=== PATIENT | male | born 1950 | race Caucasian/White ===

== ENCOUNTER → 2020-06-13 13:36 | Outpatient (BNVA) | payer MEDICARE, SELFPAY | PROVIDERS: PCP Internal Medicine; Visit Provider Urology | DX: Z13.89 Encounter for screening for other disorder (principal) | CPT/HCPCS: Q3014 ==

== ENCOUNTER → 2021-06-20 13:09 | Outpatient (BNVA) | payer MEDICARE, SELFPAY | PROVIDERS: PCP Internal Medicine; Visit Provider Urology | DX: N52.31 Erectile dysfunction following radical prostatectomy (principal); C61 Malignant neoplasm of prostate | CPT/HCPCS: Q3014 ==

== ENCOUNTER 2023-07-31 08:41 | Outpatient (AMB) | payer MEDICARE, SELFPAY ==
--- NOTE | 2023-07-31 08:49 | MHC.OFFVIS ---
Intake Visit Reasons: hx of prostate cancer Intake Note: Patient is Present for Follow Up Urology Medication: None Antibiotic Allergies:None Blood Thinners: Aspirin Allergies No Known Allergies Allergy (Verified 07/31/23 08:54) HPI Comments Details: Mr Howard is a very pleasant male - he is deaf. They are a patient of Dr Bhat. He seen for the following urologic conditions - prostate cancer - erectile dysfunction PSA remains low Good control of urination Continue follow yearly given salvage radiation Encouraged activity as now in the 70s. Include resistance training 2 times a week. Prostate cancer: Favorable intermediate radical prostatectomy 2000, external beam radiation 2012 Doing well PSA controlled Good urination. Prostate cancer was diagnosed [address] Montemayor. Diagnosis was reached by needle biopsy, for elevated PSA. The Samra grade is 3+4 = 7. TNM Classification of Malignant Tumours (TNM) T2a. The D'Aristides (NCCN) risk category is Intermediate Risk (PSA 10-20, Gl 7, T2). Initial therapy included Primary treatment, Prostatectomy (RRP/Robotic) , Additional treatment, Observation - 2009 , Additional treatment, , External Beam Radiation , Additional treatment, Observation. Recent labs included a PSA (prostate-specific antigen) Nov 2014, < 0.1, June 2015, < 0.05 November 2016 ,< 0.1 05/24 < 0.1, 06/23 < 0.1, 06/24 < 0.1, 06/25 < 0.1, 06/26 <0.1, 01/27 <0.1 Associated conditions erectile dysfunction Yes Discussed options Therapeutic plan: Continue with surveillance [facility] Medical History Deaf Hyperlipidemia CAD (coronary atherosclerotic disease) HTN (hypertension) Review of Systems Const Denies chills and Denies fever(s) Card Reports no additional complaints and Denies syncope Resp Denies cough GI Denies abdominal pain and Denies heartburn Reports as per HPI and Denies change in libido Neuro Denies syncope Psych Denies change in libido Endo Denies change in libido Physical Exam Const General: cooperative, healthy appearing, comfortable and no acute distress Orientation/consciousness: patient oriented x3 HEENT Face and sinus: Yes normal facial exam Mouth: moist mucous membranes Neck Neck: Yes normal visual inspection, Yes full ROM and Yes trachea midline Chest Chest palpation & inspection: normal inspection of the chest Resp Effort & Inspection: normal respiratory effort, able to speak in complete sentences and no respiratory distress GI Inspection: Yes normal to inspection Back/Spine/Pelvis Cervical Spine: normal cervical lordosis Thoracic/Lumbar Spine: thoracic and lumbar spine normal to inspection Skin General skin exam: no rashes or lesions noted Neuro General: patient oriented x3, gait normal, tone normal and moves all extremities Extrem General: Yes normal to inspection and Yes capillary refill normal Assessment & Plan Assessment & Plan (1) Prostate cancer: Comment: Intermediate risk 2000 Code(s): C61 - Malignant neoplasm of prostate Category: Medical (2) Erectile dysfunction after radical prostatectomy: Code(s): N52.31 - Erectile dysfunction following radical prostatectomy Category: Medical Plan Twelve month follow-up Orders: Orders Prostate Specific Antigen 364 Days C61 - Malignant neoplasm of prostate Patient Instructions: Imaging studies, laboratory and physical exam results were discussed and reviewed in detail. No major barriers to patient understanding were identified. An opportunity to ask questions regarding the treatment plan was provided. All questions were answered. The patient expressed understanding and agreement with the above treatment plan. The patient is aware they should contact our office by phone for worsening of their current condition or the appearance of new urologic symptoms. Compliance is encouraged with any medications and followup testing that is ordered. It is a privilege to participate in the urologic care of your patient. If you have any questions or concerns regarding treatment for the above conditions, or other urologic issues, please do not hesitate to contact me. The office telephone contact is [phone]. This note is constructed using voice recognition software. While every effort has been made to ensure accuracy cheese grader errors may have been included. Yours sincerely, Dr Walker Candelaria MD, [facility] - Urology Providers of Expert, Compassionate Care for the Genitourinary System Coding Level of Care Code Est Pt Level 4 (28435) Complex EM visit Add On G2211 Diagnoses Prostate cancer C61 Erectile dysfunction after radical prostatectomy N52.31
== END 2023-07-31 09:22 | disposition home or self-care (01) ==
PROVIDERS: PCP Internal Medicine; Visit Provider Urology
DX: C61 Malignant neoplasm of prostate (principal); N52.31 Erectile dysfunction following radical prostatectomy
CPT/HCPCS: 99213; G2211

== ENCOUNTER → 2023-07-31 08:41 | Outpatient (BNVA) | payer MEDICARE, SELFPAY | PROVIDERS: PCP Internal Medicine; Visit Provider Urology | DX: C61 Malignant neoplasm of prostate (principal); N52.31 Erectile dysfunction following radical prostatectomy | CPT/HCPCS: 99212 ==

== ENCOUNTER 2024-07-29 08:53 | Outpatient (AMB) | payer MEDICARE, SELFPAY ==
--- NOTE | 2024-07-29 09:00 | MHC.OFFVIS ---
Intake Visit Reasons: 1y/PSA Allergies No Known Allergies Allergy (Verified 07/31/23 08:54) HPI Comments Details: Mr Howard is a very pleasant male - he is deaf. They are a patient of Dr Bhat. He seen for the following urologic conditions - prostate cancer - erectile dysfunction PSA remains controlled Following yearly out to 15 years since had external beam radiation Encouraged activity as now in the 70s. Include resistance training 2 times a week. Prostate cancer: Favorable intermediate radical prostatectomy 2000, external beam radiation 2012 Doing well PSA controlled Good urination. Prostate cancer was diagnosed [address] Montemayor. Diagnosis was reached by needle biopsy, for elevated PSA. The Young grade is 3+4 = 7. TNM Classification of Malignant Tumours (TNM) T2a. The D'Aristides (NCCN) risk category is Intermediate Risk (PSA 10-20, Gl 7, T2). Initial therapy included Primary treatment, Prostatectomy (RRP/Robotic) , Additional treatment, Observation - 2009 , Additional treatment, , External Beam Radiation , Additional treatment, Observation. Recent labs included a PSA (prostate-specific antigen) Nov 2014, < 0.1, June 2015, < 0.05 November 2016 ,< 0.1 05/24 < 0.1, 06/23 < 0.1, 06/24 < 0.1, 06/25 < 0.1, 06/26 <0.1, 01/27 <0.1, 07/30 < 0.1 Associated conditions erectile dysfunction Yes Discussed options Therapeutic plan: Continue with surveillance [facility] Medical History Deaf Hyperlipidemia CAD (coronary atherosclerotic disease) HTN (hypertension) Review of Systems Const Denies chills and Denies fever(s) Card Reports no additional complaints and Denies syncope Resp Denies cough GI Denies abdominal pain and Denies heartburn Reports as per HPI and Denies change in libido Neuro Denies syncope Psych Denies change in libido Endo Denies change in libido Physical Exam Const General: cooperative, healthy appearing, comfortable and no acute distress Orientation/consciousness: patient oriented x3 HEENT Face and sinus: Yes normal facial exam Mouth: moist mucous membranes Neck Neck: Yes normal visual inspection, Yes full ROM and Yes trachea midline Chest Chest palpation & inspection: normal inspection of the chest Resp Effort & Inspection: normal respiratory effort, able to speak in complete sentences and no respiratory distress GI Inspection: Yes normal to inspection Back/Spine/Pelvis Cervical Spine: normal cervical lordosis Thoracic/Lumbar Spine: thoracic and lumbar spine normal to inspection Skin General skin exam: no rashes or lesions noted Neuro General: patient oriented x3, gait normal, tone normal and moves all extremities Extrem General: Yes normal to inspection and Yes capillary refill normal Assessment & Plan Assessment & Plan (1) Prostate cancer: Comment: Intermediate risk 2000 Code(s): C61 - Malignant neoplasm of prostate Category: Medical (2) Erectile dysfunction after radical prostatectomy: Code(s): N52.31 - Erectile dysfunction following radical prostatectomy Category: Medical Plan 12 month follow-up PSA office Orders: Orders Prostate Specific Antigen 12 Months C61 - Malignant neoplasm of prostate Patient Instructions: This note is constructed using voice recognition software. While every effort has been made to ensure accuracy computing architect errors may have been included. Imaging studies, laboratory and physical exam results were discussed and reviewed in detail. No major barriers to patient understanding were identified. An opportunity to ask questions regarding the treatment plan was provided. All questions were answered. The patient expressed understanding and agreement with the above treatment plan. The patient is aware they should contact our office by phone for worsening of their current condition or the appearance of new urologic symptoms. Compliance is encouraged with any medications and followup testing that is ordered. It is a privilege to participate in the urologic care of your patient. If you have any questions or concerns regarding treatment for the above conditions, or other urologic issues, please do not hesitate to contact me. The office telephone contact is [phone]. Sincerely, Dr Walker Candelaria MD, [facility] - Urology Compassionate Specialist Care for the Genitourinary System Coding Level of Care Code Est Pt Level 4 (47613) Complex EM visit Add On G2211 Diagnoses Prostate cancer C61 Erectile dysfunction after radical prostatectomy N52.31
== END 2024-07-29 09:20 | disposition home or self-care (01) ==
LOC: HO.HUSH 08:53
PROVIDERS: PCP Internal Medicine; Visit Provider Urology
DX: C61 Malignant neoplasm of prostate (principal); N52.31 Erectile dysfunction following radical prostatectomy
CPT/HCPCS: 99214; G2211

== ENCOUNTER → 2024-07-29 08:53 | Outpatient (BNVA) | payer MEDICARE, SELFPAY | PROVIDERS: PCP Internal Medicine; Visit Provider Urology | DX: N52.31 Erectile dysfunction following radical prostatectomy (principal); Z87.438 Personal history of other diseases of male genital organs | CPT/HCPCS: 99212 ==